=== PATIENT | female | born 1980 | race Caucasian/White ===

== ENCOUNTER 2018-05-22 13:47 | Emergency (ER) | payer OTHER ==
[~2018-05-22] VITALS: Ht 160 cm; Wt 52.2 kg
[2018-05-22 13:48] VITALS: BP 140/76
--- NOTE | 2018-05-22 13:58 | NUR ---
37 YO F BIB [facility] PD FOR PRE-BOOK CLEARANCE. PT REPORTS "ABSCESS" TO THE RIGHT ANKLE X 2-3 WEEKS. UPON ASSESSMENT, SMALL LESION NOTED TO THE ANKLE THAT MAY BE WEAR A SCAB WAS PICKED OFF. PT STATES METH USE. AAOX4, GCS 15, CMS INTACT. RR EVEN AND UNLABORED. LUNGS BL CLEAR. ABD SOFT, UNLABORED. LUNGS BL CLEAR. AMBULATORY W/ STEADY GAIT. ER MD NOTIFIED. PT NEEDS MET. SAFETY PRECAUTIONS IN PLACE. WILL CONTINUE TO MONITOR.
--- NOTE | 2018-05-22 14:10 | NUR ---
Patient being evaluated by physician at bedside.
[2018-05-22 14:30] VITALS: BP 130/60
--- NOTE | 2018-05-22 14:30 | NUR ---
Patient discharged with v/s stable. Written and verbal after care instructions given and explained. Patient alert, oriented and verbalized understanding of instructions. Police with in custody. All questions addressed prior to discharge. ID band removed. Patient advised to follow up with PMD. Rx of KEFLEX 500 MG given. Patient educated on indication of medication including possible reaction and side effects. Opportunity to ask questions provided and answered.
== END 2018-05-22 14:30 | disposition home or self-care (01) ==
LOC: MED 13:47
DX: L03.115 Cellulitis of right lower limb (principal); F17.200 Nicotine dependence, unspecified, uncomplicated; Z88.2 Allergy status to sulfonamides
CPT/HCPCS: 99283